=== PATIENT | female | born 1975 | race Caucasian/White ===

== ENCOUNTER 2017-10-26 14:59 | Outpatient (CLI) | payer MEDICAID ==
[2017-10-26 16:38] LABS: ALANINE AMINOTRANSFERASE 37 IU/L (13-69); ALBUMIN 3.1 g/dl (3.3-4.9); ALBUMIN/GLOBULIN RATIO 1.19; ALKALINE PHOSPHATASE 214 IU/L (42-121); ANION GAP 14 (8-16); ASPARTATE AMINO TRANSFERASE 30 IU/L (15-46); BILIRUBIN,INDIRECT 0.2 mg/dl (0-1.1); BILIRUBIN,TOTAL 0.2 mg/dl (0.2-1.3); BLOOD UREA NITROGEN 10 mg/dl (7-20); CALCIUM 9.2 mg/dl (8.4-10.2); CARBON DIOXIDE 19 mmol/L (21-31); CHLORIDE 108 mmol/L (97-110); CREATININE 0.58 mg/dl (0.44-1.00); GLUCOSE 93 mg/dl (70-220); SODIUM 137 mmol/L (135-144); TOTAL PROTEIN 5.7 g/dl (6.1-8.1)
[2017-10-26] MEDS ORDERED: DIPHENHYDRAMINE 50 MG INJ IM (17:00)
[2017-10-31 21:08] LABS: CHENODEOXYCHOLIC ACID 1.7 umol/L (< OR = 3.1); CHOLIC ACID 2.4 umol/L (< OR = 1.8); DEOXYCHOLIC ACID <0.5 umol/L (< OR = 2.4)
== END 2017-10-26 17:20 | disposition home or self-care (01) ==
LOC: OBT 14:59 → L-D 14:59 → OBT 17:20
DX: O24.419 Gestational diabetes mellitus in pregnancy, unspecified control (principal); O26.893 Other specified pregnancy related conditions, third trimester; R21 Rash and other nonspecific skin eruption; O30.003 Twin pregnancy, unspecified number of placenta and unspecified number of amniotic sacs, third trimester; O09.513 Supervision of elderly primigravida, third trimester; Z3A.31 31 weeks gestation of pregnancy
CPT/HCPCS: 76818; 80053; 83789

== ENCOUNTER 2017-11-06 16:44 | Inpatient (IN) | payer MEDICAID ==
[2017-11-06] MEDS: LACTATED RINGER'S 1,000 ML IV (18:01)
[2017-11-06] MEDS: BETAMET NA PHOS/AC(6 MG/ML) 5ML INJ IM (18:02)
[2017-11-06] MEDS: MAGNESIUM SULFATE 4 GM/100 ML 100 ML IV (18:05)
[2017-11-06 18:10] LABS: ADD UMIC YES; UR ASCORBIC ACID NEGATIVE (NEGATIVE); UR BILIRUBIN (Dip) NEGATIVE (NEGATIVE); UR BLOOD (Dip) NEGATIVE (NEGATIVE); UR CLARITY CLOUDY (CLEAR); UR COLOR YELLOW (YELLOW); UR GLUCOSE (Dip) NEGATIVE (NEGATIVE); UR KETONES (Dip) 1+ mg/dL (NEGATIVE); UR LEUKOCYTE ESTERASE (Dip) 3+ Leu/ul (NEGATIVE); UR NITRITE (Dip) NEGATIVE (NEGATIVE); UR RBC 10 /HPF (0-5); UR SPECIFIC GRAVITY (Dip) 1.009 (1.003-1.030); UR SQUAMOUS EPITHELIAL CELL FEW /HPF (FEW); UR TOTAL PROTEIN (Dip) NEGATIVE (NEGATIVE); UR TRANSITIONAL EPI CELL FEW /HPF (NONE SEEN); UR UROBILINOGEN (Dip) NEGATIVE (NEGATIVE); UR WBC > 182 /HPF (0-5)
[2017-11-06 18:14] LABS: UR BACTERIA FEW /HPF (NONE SEEN)
[2017-11-06 18:19] LABS: ADD MAN DIFF? NO
[2017-11-06 18:23] LABS: BASOPHIL # 0.1 10^3/ul (0.0-0.1); BASOPHILS % 0.5 % (0.0-2.0); EOSINOPHILS # 0.2 10^3/ul (0.0-0.5); EOSINOPHILS % 1.6 % (0.0-7.0); HEMATOCRIT 38.8 % (37.0-47.0); HEMOGLOBIN 13.3 g/dl (12.0-16.0); LYMPHOCYTES # 3.2 10^3/ul (0.8-2.9); LYMPHOCYTES % 33.8 % (15.0-51.0); MEAN CORPUSCULAR HEMOGLOBIN 32.5 pg (29.0-33.0); MEAN CORPUSCULAR HGB CONC 34.3 g/dl (32.0-37.0); MEAN CORPUSCULAR VOLUME 94.9 fl (82.0-101.0); MEAN PLATELET VOLUME 11.7 fl (7.4-10.4); MONOCYTE # 0.5 10^3/ul (0.3-0.9); NEUTROPHIL # 5.5 10^3/ul (1.6-7.5); NEUTROPHILS % 58.7 % (39.0-77.0); PLATELET COUNT 194 10^3/UL (140-415); RED BLOOD COUNT 4.09 10^6/ul (4.20-5.40)
[2017-11-06 18:23] LABS: WHITE BLOOD COUNT 9.3 10^3/ul (4.8-10.8)
[2017-11-06] MEDS: MAGNESIUM SULFATE 20 GM/500 ML 500 ML IV (18:34)
[2017-11-06 18:41] LABS: INR 0.89; PROTIME 12.1 Sec (11.9-14.9); PT RATIO 0.9
[2017-11-06 18:42] LABS: PARTIAL THROMBOPLASTIN TIME 30.4 Sec (25.0-35.0)
[2017-11-06 18:46] LABS: ALANINE AMINOTRANSFERASE 35 IU/L (13-69); ALBUMIN 3.4 g/dl (3.3-4.9); ALBUMIN/GLOBULIN RATIO 1.06; ALKALINE PHOSPHATASE 266 IU/L (42-121); ANION GAP 15 (8-16); ASPARTATE AMINO TRANSFERASE 30 IU/L (15-46); BILIRUBIN,INDIRECT 0.4 mg/dl (0-1.1); BILIRUBIN,TOTAL 0.4 mg/dl (0.2-1.3); BLOOD UREA NITROGEN 10 mg/dl (7-20); CALCIUM 9.2 mg/dl (8.4-10.2); CARBON DIOXIDE 19 mmol/L (21-31); CHLORIDE 110 mmol/L (97-110); CREATININE 0.64 mg/dl (0.44-1.00); GLUCOSE 80 mg/dl (70-220); POTASSIUM 4.5 mmol/L (3.5-5.1); SODIUM 139 mmol/L (135-144); TOTAL PROTEIN 6.6 g/dl (6.1-8.1); URIC ACID 6.6 mg/dl (3.1-7.9)
[2017-11-06] MEDS: ACETAMINOPHEN 325 MG TAB PO (19:16)
[2017-11-06 19:35] LABS: RAPID PLASMA REAGIN NONREACTIVE (NR)
[2017-11-06] MEDS: LABETALOL HCL 20MG INJ IV ×2 (20:23→20:59)
[2017-11-06 23:58] LABS: HEPATITIS B SURFACE ANTIGEN NEGATIVE (NEGATIVE)
[2017-11-07 00:56] LABS: MAGNESIUM 5.7 mg/dl (1.7-2.5)
[2017-11-07] MEDS: FAMOTIDINE 20 MG INJ IV (01:44)
[2017-11-07] MEDS: LACTATED RINGER'S 1,000 ML IV ×3 (03:32→16:49)
[2017-11-07] MEDS: MAGNESIUM SULFATE 20 GM/500 ML 500 ML IV ×3 (04:28→20:30)
[2017-11-07 07:54] LABS: MAGNESIUM 6.6 mg/dl (1.7-2.5)
[2017-11-07 12:43] LABS: MAGNESIUM 6.1 mg/dl (1.7-2.5)
[2017-11-07] MEDS: ACETAMINOPHEN 325 MG TAB PO (13:12)
[2017-11-07 17:52] LABS: COLLECTION PERIOD 24 hrs
[2017-11-07] MEDS: BETAMET NA PHOS/AC(6 MG/ML) 5ML INJ IM (18:08)
[2017-11-07 18:22] LABS: CREATININE 0.67 mg/dl (0.44-1.00)
[2017-11-07 18:33] LABS: MAGNESIUM 5.7 mg/dl (1.7-2.5)
[2017-11-07 19:16] LABS: CREATININE,URINE RANDOM 31.53 mg/dl (20-320)
[2017-11-07 19:37] LABS: VOLUME 3400 ml/24hrs
[2017-11-07 19:38] LABS: COLLECTION PERIOD 24 hrs
[2017-11-07] MEDS: ONDANSETRON 4 MG INJ IV (19:41)
[2017-11-07 19:44] LABS: CREATININE CLEARANCE 111.1 mls/min (84.0-162.0); SCRET 0.67 mg/dl (0.44-1.00)
[2017-11-07 21:47] LABS: VOLUME 3400 mls
[2017-11-08 01:44] LABS: MAGNESIUM 5.6 mg/dl (1.7-2.5)
[2017-11-08] MEDS: LACTATED RINGER'S 1,000 ML IV ×2 (05:31→17:29)
[2017-11-08 08:25] LABS: MAGNESIUM 5.5 mg/dl (1.7-2.5)
[2017-11-08 12:16] LABS: MAGNESIUM 5.4 mg/dl (1.7-2.5)
[2017-11-08] MEDS: MAGNESIUM SULFATE 20 GM/500 ML 500 ML IV (17:29)
[2017-11-08 18:35] LABS: MAGNESIUM 4.9 mg/dl (1.7-2.5)
[2017-11-09] MEDS: LACTATED RINGER'S 1,000 ML IV ×2 (07:05→17:33)
[2017-11-09 09:42] LABS: MAGNESIUM 5.2 mg/dl (1.7-2.5)
[2017-11-09] MEDS: MAGNESIUM SULFATE 20 GM/500 ML 500 ML IV (10:27)
[2017-11-10] MEDS: FAMOTIDINE 20 MG INJ IV ×2 (00:06→14:29)
[2017-11-10] MEDS: LACTATED RINGER'S 1,000 ML IV ×3 (04:21→23:50)
[2017-11-10] MEDS: MAGNESIUM SULFATE 20 GM/500 ML 500 ML IV (05:00)
[2017-11-10 06:55] LABS: MAGNESIUM 4.4 mg/dl (1.7-2.5)
[2017-11-11] MEDS ORDERED: OXYTOCIN 30 UNITS/LR 500 ML IV ×3 (04:30→14:30)
[2017-11-11] MEDS ORDERED: CEFAZOLIN 2 GM/50 ML (PMX) 50 ML IV (04:30)
[2017-11-11] MEDS ORDERED: METHYLERGONOVINE 0.2 MG INJ IM ×2 (04:30→14:30)
[2017-11-11] MEDS ORDERED: MISOPROSTOL 200 MCG TAB PR ×2 (04:30→14:30)
[2017-11-11] MEDS ORDERED: CARBOPROST 250 MCG INJ IM ×2 (04:30→14:30)
[2017-11-11 06:54] LABS: ADD MAN DIFF? NO
[2017-11-11 07:01] LABS: WHITE BLOOD COUNT 9.1 10^3/ul (4.8-10.8)
[2017-11-11 07:01] LABS: BASOPHILS % 0.4 % (0.0-2.0); EOSINOPHILS % 0.3 % (0.0-7.0); HEMATOCRIT 38.6 % (37.0-47.0); HEMOGLOBIN 13.4 g/dl (12.0-16.0); LYMPHOCYTES # 2.3 10^3/ul (0.8-2.9); LYMPHOCYTES % 25.1 % (15.0-51.0); MEAN CORPUSCULAR HGB CONC 34.7 g/dl (32.0-37.0); MEAN CORPUSCULAR VOLUME 95.1 fl (82.0-101.0); MEAN PLATELET VOLUME 11.2 fl (7.4-10.4); MONOCYTE # 0.4 10^3/ul (0.3-0.9); MONOCYTES % 4.2 % (0.0-11.0); NEUTROPHIL # 6.2 10^3/ul (1.6-7.5); NEUTROPHILS % 68.6 % (39.0-77.0); NUCLEATED RED BLOOD CELLS% 0.4 /100WBC (0.0-0.0); PLATELET COUNT 193 10^3/UL (140-415); RED BLOOD COUNT 4.06 10^6/ul (4.20-5.40)
[2017-11-11 07:22] LABS: INR 0.84; PROTIME 11.6 Sec (11.9-14.9); PT RATIO 0.9
[2017-11-11 07:23] LABS: PARTIAL THROMBOPLASTIN TIME 28.1 Sec (25.0-35.0)
[2017-11-11] MEDS ORDERED: METOCLOPRAMIDE 10 MG INJ (07:59)
[2017-11-11] MEDS ORDERED: CITRIC ACID/SODIUM CITRATE 15 ML CUP (07:59)
[2017-11-11] MEDS: OXYTOCIN 30 UNITS/LR 500 ML IV ×3 (08:00→15:38)
[2017-11-11] MEDS: METOCLOPRAMIDE 10 MG INJ IV (08:01)
[2017-11-11] MEDS: LACTATED RINGER'S 1,000 ML IV ×3 (08:01→14:04)
[2017-11-11] MEDS: FAMOTIDINE 20 MG INJ IV (08:02)
[2017-11-11] MEDS: CITRIC ACID/SODIUM CITRATE 15 ML CUP PO (08:02)
[2017-11-11] MEDS ORDERED: morphine SULFATE/PF (10 MG/10 ML) INJ (08:17)
[2017-11-11] MEDS ORDERED: BUPIVACAINE 0.75%/DEXT (SPINAL) 2 ML INJ (08:17)
[2017-11-11] MEDS ORDERED: PHENYLephrine (100 MCG/ML) 10ML SYG (08:38)
[2017-11-11] MEDS ORDERED: FENTAnyl 50 MCG/ML VIAL IV (09:30)
[2017-11-11] MEDS ORDERED: MEPERIDINE 25 MG INJ IV (09:30)
[2017-11-11] MEDS ORDERED: HYDROmorphONE 1 MG/5 ML IV SYRINGE IV (09:30)
[2017-11-11] MEDS ORDERED: LABETALOL HCL 20MG INJ IV (09:30)
[2017-11-11] MEDS ORDERED: DIPHENHYDRAMINE 50 MG INJ IV ×2 (09:30→10:00)
[2017-11-11] MEDS ORDERED: ONDANSETRON 4 MG INJ IV ×2 (09:30→10:00)
[2017-11-11] MEDS ORDERED: PROCHLORPERAZINE 10 MG INJ IV (09:30)
[2017-11-11] MEDS ORDERED: NALOXONE (0.4 MG/ML) INJ IV (10:00)
[2017-11-11] MEDS ORDERED: ZOLPIDEM 5 MG TAB PO (10:00)
[2017-11-11] MEDS ORDERED: HYDROmorphONE 0.5 MG/0.5 ML SYG IV ×2 (10:00)
[2017-11-11] MEDS: LABETALOL HCL 20MG INJ IV ×2 (10:53→12:03)
[2017-11-11] MEDS: MAGNESIUM SULFATE 20 GM/500 ML 500 ML IV ×2 (11:38→21:40)
[2017-11-11] MEDS: KETOROLAC 30 MG INJ IV (12:35)
[2017-11-11] MEDS ORDERED: OXYCODONE/ACETAMINOPHEN (5/325) TAB PO (14:30)
[2017-11-11] MEDS ORDERED: HYDROCODONE/APAP (5/325) TAB PO (14:30)
[2017-11-11] MEDS: IBUPROFEN 600 MG TAB PO ×2 (14:30→17:25)
[2017-11-11] MEDS ORDERED: LANOLIN 7 GM TUBE TOP (14:30)
[2017-11-11] MEDS: CEFAZOLIN 1 GM/50 ML (PMX) 50 ML IVPB (15:38)
[2017-11-11 18:05] LABS: MAGNESIUM 5.4 mg/dl (1.7-2.5)
[2017-11-11] MEDS: LABETALOL 200 MG TAB PO (21:06)
[2017-11-12 01:13] LABS: MAGNESIUM 6.7 mg/dl (1.7-2.5)
[2017-11-12] MEDS: KETOROLAC 30 MG INJ IV (01:27)
[2017-11-12] MEDS: LACTATED RINGER'S 1,000 ML IV ×2 (02:54→14:39)
[2017-11-12] MEDS: IBUPROFEN 600 MG TAB PO ×4 (06:00→17:17)
[2017-11-12 06:37] LABS: ADD MAN DIFF? NO
[2017-11-12 06:46] LABS: BASOPHILS % 0.3 % (0.0-2.0); EOSINOPHILS % 0.4 % (0.0-7.0); HEMATOCRIT 34.5 % (37.0-47.0); HEMOGLOBIN 12.1 g/dl (12.0-16.0); LYMPHOCYTES # 1.5 10^3/ul (0.8-2.9); LYMPHOCYTES % 21.3 % (15.0-51.0); MEAN CORPUSCULAR HEMOGLOBIN 33.6 pg (29.0-33.0); MEAN CORPUSCULAR HGB CONC 35.1 g/dl (32.0-37.0); MEAN CORPUSCULAR VOLUME 95.8 fl (82.0-101.0); MEAN PLATELET VOLUME 10.5 fl (7.4-10.4); MONOCYTE # 0.3 10^3/ul (0.3-0.9); MONOCYTES % 4.6 % (0.0-11.0); NEUTROPHIL # 5.1 10^3/ul (1.6-7.5); NEUTROPHILS % 72.8 % (39.0-77.0); PLATELET COUNT 180 10^3/UL (140-415)
[2017-11-12 07:20] LABS: MAGNESIUM 7.4 mg/dl (1.7-2.5)
[2017-11-12] MEDS: FOLIC ACID 1 MG TAB PO (09:03)
[2017-11-12] MEDS: FERROUS SULFATE (EC) 325 MG TAB PO (09:03)
[2017-11-12] MEDS: LABETALOL 200 MG TAB PO ×2 (09:04→21:19)
[2017-11-12] MEDS: SENNA/DOCUSATE NA (8.6MG/50MG) TAB PO ×2 (09:04→21:19)
[2017-11-12] MEDS: MAGNESIUM SULFATE 20 GM/500 ML 500 ML IV ×2 (09:06→16:32)
[2017-11-12] MEDS ORDERED: MAGNESIUM SULFATE 1 GM/D5W 100 ML IVPB (10:00)
[2017-11-12 14:44] LABS: MAGNESIUM 5.6 mg/dl (1.7-2.5)
[2017-11-12 18:51] LABS: MAGNESIUM 5.3 mg/dl (1.7-2.5)
[2017-11-12] MEDS: HYDROCODONE/APAP (5/325) TAB PO (21:09)
[2017-11-13] MEDS: IBUPROFEN 600 MG TAB PO ×5 (00:29→23:42)
[2017-11-13] MEDS: SENNA/DOCUSATE NA (8.6MG/50MG) TAB PO ×2 (08:55→21:06)
[2017-11-13] MEDS: FOLIC ACID 1 MG TAB PO (08:55)
[2017-11-13] MEDS: LABETALOL 200 MG TAB PO (08:56)
[2017-11-13] MEDS: FERROUS SULFATE (EC) 325 MG TAB PO (08:56)
[2017-11-13] MEDS: OXYCODONE/ACETAMINOPHEN (5/325) TAB PO ×2 (09:02→15:34)
[2017-11-13] MEDS: NIFEdipine (XL) 30 MG TAB PO (09:30)
[2017-11-13] MEDS: NA PHOSPHATE/BIPHOS 133 ML ENEMA PR (11:00)
[2017-11-13] MEDS: LABETALOL 100 MG TAB PO ×2 (11:00→21:08)
[2017-11-14] MEDS: IBUPROFEN 600 MG TAB PO ×2 (06:03→13:09)
[2017-11-14] MEDS: NIFEdipine (XL) 30 MG TAB PO ×2 (09:00→13:24)
[2017-11-14] MEDS: FOLIC ACID 1 MG TAB PO (09:03)
[2017-11-14] MEDS: FERROUS SULFATE (EC) 325 MG TAB PO (09:03)
[2017-11-14] MEDS: SENNA/DOCUSATE NA (8.6MG/50MG) TAB PO (09:03)
[2017-11-14] MEDS: OXYCODONE/ACETAMINOPHEN (5/325) TAB PO (09:04)
[2017-11-14] MEDS: LABETALOL 100 MG TAB PO (09:04)
[2017-11-14] MEDS: DIPHTH/TET/ACEL PERTUSS (ADULT) 0.5 ML VIAL IM* (13:12)
== END 2017-11-14 16:00 | disposition home or self-care (01) | DRG 765 ==
LOC: OBT 16:44 → L-D 16:45 → OBT 17:50 → L-D 11-11 07:57 → PP1 11-11 13:46
PROC: 10D00Z1 Extraction of Products of Conception, Low, Open Approach (ICD-10-PCS; principal; 2017-11-11 07:30)
DX: O13.4 Gestational [pregnancy-induced] hypertension without significant proteinuria, complicating childbirth (principal); O30.043 Twin pregnancy, dichorionic/diamniotic, third trimester; Z3A.33 33 weeks gestation of pregnancy; O24.420 Gestational diabetes mellitus in childbirth, diet controlled; O26.86 Pruritic urticarial papules and plaques of pregnancy (PUPPP); Z37.2 Twins, both liveborn; O32.8XX0 Maternal care for other malpresentation of fetus, not applicable or unspecified
CPT/HCPCS: 76815; 76818; 80053; 81001; 82565; 82575; 82962; 83735; 84156; 84560; 85025; 85610; 85730; 86592; 86850; 86900; 86901; 87086; 87340; 88307; 90715; 99464

== ENCOUNTER 2018-11-23 10:02 | Inpatient (IN) | payer OTHER ==
[2018-11-23 10:58] LABS: ADD MAN DIFF? NO
[2018-11-23 11:01] LABS: URINE PH (Dip) POC 8.5 (5.0-8.5)
[2018-11-23 11:01] LABS: WHITE BLOOD COUNT 7.1 10^3/ul (4.8-10.8)
[2018-11-23 11:01] LABS: BASOPHILS % 0.6 % (0.0-2.0); EOSINOPHILS # 0.1 10^3/ul (0.0-0.5); EOSINOPHILS % 1.8 % (0.0-7.0); HEMATOCRIT 41.5 % (37.0-47.0); HEMOGLOBIN 13.7 g/dl (12.0-16.0); LYMPHOCYTES # 1.5 10^3/ul (0.8-2.9); LYMPHOCYTES % 20.7 % (15.0-51.0); MEAN CORPUSCULAR HEMOGLOBIN 29.2 pg (29.0-33.0); MEAN CORPUSCULAR VOLUME 88.5 fl (82.0-101.0); MEAN PLATELET VOLUME 9.8 fl (7.4-10.4); MONOCYTE # 0.3 10^3/ul (0.3-0.9); MONOCYTES % 3.7 % (0.0-11.0); NEUTROPHIL # 5.1 10^3/ul (1.6-7.5); NEUTROPHILS % 72.9 % (39.0-77.0); PLATELET COUNT 248 10^3/UL (140-415); RED BLOOD COUNT 4.69 10^6/ul (4.20-5.40); RED CELL DISTRIBUTION WIDTH 12.9 % (11.5-14.5); URINE BLOOD (Dip) POC 3+ (NEGATIVE); URINE GLUCOSE (Dip) POC Negative (NEGATIVE); URINE KETONES (Dip) POC 1+ (NEGATIVE); URINE LEUKOCYTE EST (Dip) POC Negative (NEGATIVE); URINE NITRITE (Dip) POC Negative (NEGATIVE); URINE TOTAL PROTEIN POC 1+ (NEGATIVE)
[2018-11-23] MEDS: ONDANSETRON 4 MG INJ IV (11:12)
[2018-11-23] MEDS: morphine 4 MG/ML VIAL IV (11:13)
[2018-11-23 11:18] LABS: ALANINE AMINOTRANSFERASE 30 IU/L (13-69); ALBUMIN 4.1 g/dl (3.3-4.9); ALBUMIN/GLOBULIN RATIO 1.24; ALKALINE PHOSPHATASE 93 IU/L (42-121); AMYLASE 92 U/L (11-123); ANION GAP 9 (5-13); ASPARTATE AMINO TRANSFERASE 26 IU/L (15-46); BILIRUBIN,INDIRECT 0.5 mg/dl (0-1.1); BILIRUBIN,TOTAL 0.5 mg/dl (0.2-1.3); BLOOD UREA NITROGEN 11 mg/dl (7-20); CARBON DIOXIDE 24 mmol/L (21-31); CHLORIDE 109 mmol/L (97-110); CREATININE 0.56 mg/dl (0.44-1.00); Estimated GFR > 60 mL/min (>60); GLUCOSE 113 mg/dl (70-220); LIPASE 97 U/L (23-300); POTASSIUM 3.6 mmol/L (3.5-5.1); SODIUM 142 mmol/L (135-144); TOTAL PROTEIN 7.4 g/dl (6.1-8.1)
[2018-11-23 11:20] LABS: INR 1.02; PROTIME 13.5 Sec (11.9-14.9); PT RATIO 1.1
[2018-11-23 11:21] LABS: PARTIAL THROMBOPLASTIN TIME 30.8 Sec (23.0-35.0)
[2018-11-23 11:30] LABS: TROPONIN-I < 0.012 ng/ml (0.000-0.120)
[2018-11-23] MEDS: SOD CHLORIDE 0.9% 100 ML (11:59)
[2018-11-23] MEDS: IOHEXOL 300MG/ML 150 ML BTL (12:00)
[2018-11-23] MEDS ORDERED: ONDANSETRON 4 MG INJ IV ×2 (13:30→14:00)
[2018-11-23] MEDS ORDERED: ACETAMINOPHEN 325 MG TAB PO ×2 (13:30→14:00)
[2018-11-23] MEDS: metroNIDAZOLE 500 MG/NS (PMX) 100 ML IVPB (13:42)
[2018-11-23] MEDS ORDERED: NACL 0.9% 3 ML SYG IV (14:00)
[2018-11-23] MEDS ORDERED: BISACODYL (EC) 5 MG TAB PO (14:00)
[2018-11-23 14:07] LABS: C-REACTIVE PROTEIN 1.2 mg/dl (0.0-0.9)
[2018-11-23 14:10] LABS: ADD UMIC YES; UR AMORPHOUS CRYSTAL FEW /HPF (NONE SEEN); UR ASCORBIC ACID NEGATIVE (NEGATIVE); UR BILIRUBIN (Dip) NEGATIVE (NEGATIVE); UR BLOOD (Dip) 3+ mg/dL (NEGATIVE); UR CLARITY TURBID (CLEAR); UR COLOR YELLOW (YELLOW); UR GLUCOSE (Dip) NEGATIVE (NEGATIVE); UR KETONES (Dip) 1+ mg/dL (NEGATIVE); UR LEUKOCYTE ESTERASE (Dip) NEGATIVE Leu/ul (NEGATIVE); UR NITRITE (Dip) NEGATIVE (NEGATIVE); UR RBC > 182 /HPF (0-5); UR SPECIFIC GRAVITY (Dip) 1.018 (1.003-1.030); UR TOTAL PROTEIN (Dip) NEGATIVE (NEGATIVE); UR UROBILINOGEN (Dip) NEGATIVE (NEGATIVE); UR WBC 26 /HPF (0-5)
[2018-11-23 14:33] LABS: HEMOGLOBIN A1C 5.3 % (0-5.9)
[2018-11-23] MEDS: CLINDAMYCIN 600 MG/D5W (PMX) 50 ML IVPB (14:57)
[2018-11-23 14:58] LABS: ERYTHROCYTE SEDIMENTATION RATE 5 mm/Hr (0-20)
[2018-11-23] MEDS: HYDROCODONE/APAP (5/325) TAB PO (15:48)
[2018-11-23] MEDS: AMPICILLIN/SULB 3 GM/NS (PMX) 100 ML IVPB ×2 (18:03→23:07)
[2018-11-23] MEDS: DOXYCYCLINE 100 MG in SOD CHLORIDE 0.9% 250 ML IVPB (21:14)
[2018-11-23] MEDS: POLYETHYLENE GLYCOL 17 GM PACKET PO (21:15)
[2018-11-24 05:24] LABS: ADD MAN DIFF? NO
[2018-11-24 05:29] LABS: WHITE BLOOD COUNT 11.5 10^3/ul (4.8-10.8)
[2018-11-24 05:29] LABS: BASOPHILS % 0.3 % (0.0-2.0); EOSINOPHILS % 0.3 % (0.0-7.0); HEMATOCRIT 37.4 % (37.0-47.0); HEMOGLOBIN 12.1 g/dl (12.0-16.0); LYMPHOCYTES # 1.4 10^3/ul (0.8-2.9); LYMPHOCYTES % 12.6 % (15.0-51.0); MEAN CORPUSCULAR HEMOGLOBIN 29.2 pg (29.0-33.0); MEAN CORPUSCULAR HGB CONC 32.4 g/dl (32.0-37.0); MEAN CORPUSCULAR VOLUME 90.3 fl (82.0-101.0); MEAN PLATELET VOLUME 10.4 fl (7.4-10.4); MONOCYTE # 0.5 10^3/ul (0.3-0.9); MONOCYTES % 4.2 % (0.0-11.0); NEUTROPHIL # 9.4 10^3/ul (1.6-7.5); NEUTROPHILS % 82.2 % (39.0-77.0); PLATELET COUNT 237 10^3/UL (140-415); RED BLOOD COUNT 4.14 10^6/ul (4.20-5.40); RED CELL DISTRIBUTION WIDTH 13.2 % (11.5-14.5)
[2018-11-24 05:53] LABS: PHOSPHORUS 3.1 mg/dl (2.5-4.9)
[2018-11-24 05:53] LABS: CHOLESTEROL 130 mg/dl (100-200); HDL CHOLESTEROL 32 mg/dl (34-88); LDL CHOLESTEROL,CALCULATED 84 mg/dl; MAGNESIUM 1.8 mg/dl (1.7-2.5); TRIGLYCERIDES 72 mg/dl (0-149)
[2018-11-24 05:59] LABS: ALANINE AMINOTRANSFERASE 27 IU/L (13-69); ALBUMIN 3.3 g/dl (3.3-4.9); ALBUMIN/GLOBULIN RATIO 1.06; ALKALINE PHOSPHATASE 74 IU/L (42-121); ANION GAP 6 (5-13); ASPARTATE AMINO TRANSFERASE 22 IU/L (15-46); BILIRUBIN,INDIRECT 0.5 mg/dl (0-1.1); BILIRUBIN,TOTAL 0.5 mg/dl (0.2-1.3); BLOOD UREA NITROGEN 8 mg/dl (7-20); CALCIUM 8.2 mg/dl (8.4-10.2); CARBON DIOXIDE 26 mmol/L (21-31); CHLORIDE 109 mmol/L (97-110); CREATININE 0.63 mg/dl (0.44-1.00); Estimated GFR > 60 mL/min (>60); GLUCOSE 119 mg/dl (70-220); POTASSIUM 3.7 mmol/L (3.5-5.1); SODIUM 141 mmol/L (135-144); TOTAL PROTEIN 6.4 g/dl (6.1-8.1)
[2018-11-24] MEDS: AMPICILLIN/SULB 3 GM/NS (PMX) 100 ML IVPB (06:27)
[2018-11-24] MEDS: HYDROCODONE/APAP (5/325) TAB PO (06:47)
[2018-11-24] MEDS: POLYETHYLENE GLYCOL 17 GM PACKET PO ×2 (08:31→20:27)
[2018-11-24] MEDS: DOXYCYCLINE 100 MG in SOD CHLORIDE 0.9% 250 ML IVPB (09:56)
[2018-11-24] MEDS: LACTULOSE ENEMA 1,000 ML BTL PR (12:57)
[2018-11-25 05:11] LABS: ADD MAN DIFF? NO
[2018-11-25 05:16] LABS: WHITE BLOOD COUNT 10.2 10^3/ul (4.8-10.8)
[2018-11-25 05:16] LABS: BASOPHILS % 0.4 % (0.0-2.0); EOSINOPHILS # 0.1 10^3/ul (0.0-0.5); EOSINOPHILS % 0.5 % (0.0-7.0); HEMATOCRIT 35.9 % (37.0-47.0); HEMOGLOBIN 11.7 g/dl (12.0-16.0); LYMPHOCYTES # 2.1 10^3/ul (0.8-2.9); LYMPHOCYTES % 20.9 % (15.0-51.0); MEAN CORPUSCULAR HEMOGLOBIN 29.2 pg (29.0-33.0); MEAN CORPUSCULAR HGB CONC 32.6 g/dl (32.0-37.0); MEAN CORPUSCULAR VOLUME 89.5 fl (82.0-101.0); MEAN PLATELET VOLUME 10.2 fl (7.4-10.4); MONOCYTE # 0.5 10^3/ul (0.3-0.9); MONOCYTES % 4.9 % (0.0-11.0); NEUTROPHIL # 7.5 10^3/ul (1.6-7.5); NEUTROPHILS % 72.9 % (39.0-77.0); PLATELET COUNT 240 10^3/UL (140-415); RED BLOOD COUNT 4.01 10^6/ul (4.20-5.40); RED CELL DISTRIBUTION WIDTH 13.2 % (11.5-14.5)
[2018-11-25 05:41] LABS: ANION GAP 8 (5-13); BLOOD UREA NITROGEN 7 mg/dl (7-20); CALCIUM 8.5 mg/dl (8.4-10.2); CARBON DIOXIDE 25 mmol/L (21-31); CHLORIDE 109 mmol/L (97-110); Estimated GFR > 60 mL/min (>60); GLUCOSE 105 mg/dl (70-220); MAGNESIUM 2.2 mg/dl (1.7-2.5); POTASSIUM 3.9 mmol/L (3.5-5.1); SODIUM 142 mmol/L (135-144)
[2018-11-25 05:41] LABS: PHOSPHORUS 2.6 mg/dl (2.5-4.9)
[2018-11-25 05:52] LABS: FREE T4 (FREE THYROXINE) 1.04 ng/dl (0.64-1.79)
[2018-11-25] MEDS: POLYETHYLENE GLYCOL 17 GM PACKET PO (08:52)
== END 2018-11-25 11:30 | disposition home or self-care (01) | DRG 392 ==
LOC: E/R 10:02 → MS1 13:06
DX: K59.00 Constipation, unspecified (principal); N83.201 Unspecified ovarian cyst, right side; N94.6 Dysmenorrhea, unspecified
CPT/HCPCS: 74177; 76830; 76856; 80048; 80053; 80061; 81001; 81003; 81025; 82150; 83036; 83690; 83735; 84100; 84439; 84443; 84484; 85025; 85610; 85651; 85730; 86140; 87040-91; 87070; 87210; 87591; 93005; 96374; 96375; 99285-25